=== PATIENT | female | born 1940 | race Caucasian/White ===

== ENCOUNTER 2021-04-16 14:08 | Emergency (ER) | payer MEDICARE, SELFPAY ==
[~2021-04-16] VITALS: Ht 154.9 cm; Wt 75.6 kg
[2021-04-16 14:14] VITALS: BP 187/72
== END 2021-04-16 23:26 | disposition left against medical advice (07) ==
LOC: ER 14:08
DX: H92.01 Otalgia, right ear (principal); Z53.21 Procedure and treatment not carried out due to patient leaving prior to being seen by health care provider